=== PATIENT | female | born 1985 | race Caucasian/White ===

== ENCOUNTER → 2017-02-17 | Outpatient (CLI) | payer OTHER ==
--- NOTE | 2017-02-17 16:12 | CPEKG ---
Heart Rate: 96 RR Interval: 625 P-R Interval: 144 QRSD Interval: 80 QT Interval: 360 QTC Interval: 455 P Olney: 43 QRS Olney: 44 T Wave Olney: 64 EKG Severity - NORMAL ECG - EKG Impression: SINUS RHYTHM Electronically Signed By: Juan Francisco Judd 18-Feb-2017 09:47:16
== END ==
LOC: FCP 15:55
PROVIDERS: ATTEND Obstetrics & Gynecology
DX: O24.012 Pre-existing type 1 diabetes mellitus, in pregnancy, second trimester (principal)

== ENCOUNTER → 2017-03-22 | Outpatient (CLI) | payer OTHER | LOC: FIMAGING 12:01 | PROVIDERS: ATTEND Obstetrics & Gynecology | DX: O24.012 Pre-existing type 1 diabetes mellitus, in pregnancy, second trimester (principal); O99.212 Obesity complicating pregnancy, second trimester; O34.219 Maternal care for unspecified type scar from previous cesarean delivery; O99.282 Endocrine, nutritional and metabolic diseases complicating pregnancy, second trimester; E66.9 Obesity, unspecified; E03.9 Hypothyroidism, unspecified; Z68.37 Body mass index [BMI] 37.0-37.9, adult; Z3A.20 20 weeks gestation of pregnancy ==

== ENCOUNTER → 2017-04-13 | Outpatient (CLI) | payer OTHER | LOC: FIMAGING 12:19 | PROVIDERS: ATTEND Obstetrics & Gynecology | DX: O24.012 Pre-existing type 1 diabetes mellitus, in pregnancy, second trimester (principal); O99.212 Obesity complicating pregnancy, second trimester; O99.282 Endocrine, nutritional and metabolic diseases complicating pregnancy, second trimester; E66.9 Obesity, unspecified; E03.9 Hypothyroidism, unspecified; Z3A.23 23 weeks gestation of pregnancy ==

== ENCOUNTER → 2017-04-19 | Outpatient (CLI) | payer OTHER | LOC: FIMAGING 08:43 | PROVIDERS: ATTEND Obstetrics & Gynecology | DX: O99.212 Obesity complicating pregnancy, second trimester (principal); O24.012 Pre-existing type 1 diabetes mellitus, in pregnancy, second trimester; O34.219 Maternal care for unspecified type scar from previous cesarean delivery; Z3A.24 24 weeks gestation of pregnancy; Z68.37 Body mass index [BMI] 37.0-37.9, adult ==

== ENCOUNTER 2017-07-26 17:30 | Observation (INO) | payer OTHER ==
[2017-07-26 20:05] LABS: ADD DIFF? NO; ADD MORPH? NO; ADD SCAN? NO; ATYPICAL LYMPHOCYTE FLAG 20 (0-99); FRAGMENT RBC FLAG 0 (0-99); HEMATOCRIT 37.4 % (38.0-47.0); HEMOGLOBIN 13.4 g/dL (12.6-16.3); LEFT SHIFT FLG 0 (0-99); LIPEMIA HEMOLYSIS FLAG 90 (0-99); MEAN CELL HEMOGLOBIN 34.4 pg (27.9-34.1); MEAN CELL HEMOGLOBIN CONCENTR. 35.8 g/dL (32.4-36.7); MEAN CELL VOLUME 96.1 fL (81.5-99.8); MEAN PLATELET VOLUME 10.7 fL (8.7-11.7); PLATELET CLUMPS FLAG 0 (0-99); PLATELET COUNT 194 10^3/uL (150-400); RED BLOOD CELL COUNT 3.89 10^6/uL (4.18-5.33); RED CELL DISTRIBUTION WIDTH 12.9 % (11.5-15.2)
[2017-07-26 20:31] LABS: ALANINE AMINOTRANSFERASE 24 IU/L (9-52); ASPARTATE AMINOTRANSFERASE 17 IU/L (14-46); BILIRUBIN,TOTAL 0.5 mg/dL (0.1-1.4); BILIRUBIN-CONJUGATED 0.3 mg/dL (0.0-0.5); BILIRUBIN-UNCONJUGATED 0.2 mg/dL (0.0-1.1); CREATININE 0.5 mg/dL (0.6-1.0); GLOMERULAR FILTRATION RATE > 60; LACTATE DEHYDROGENASE 401 IU/L (313-618); URIC ACID 4.8 mg/dL (2.5-6.8)
[2017-07-27] MEDS ORDERED: morphINE PF 5 MG/10 ML INJ ONE (12:17)
== END 2017-07-26 22:48 | disposition home or self-care (01) ==
LOC: FOBOP 17:30 → FLD 18:08
PROVIDERS: ADMIT Obstetrics & Gynecology; ATTEND Obstetrics & Gynecology
DX: O76 Abnormality in fetal heart rate and rhythm complicating labor and delivery (principal); Z3A.38 38 weeks gestation of pregnancy
CPT/HCPCS: 76818; G0378; J2274

== ENCOUNTER 2017-07-27 10:36 | Inpatient (IN) | payer OTHER ==
--- NOTE | 2017-07-16 16:39 | GHP ---
[f rep st] PREOP HISTORY AND PHYSICAL Amended report HISTORY UPON PRESENTATION: The patient is a 32-year-old, G2, P1, at 39+ weeks gestation, with an estimated due date of 08/08/2017, established by her last menstrual period. The patient is scheduled for repeat section with a history of prior section scheduled due to a large for gestational age infant with insulin-dependent diabetes. The patient declines a tubal ligation. The patient has had thorough care with [facility] as well as criminal investigator customs, Dr. Flynn and maternal specialist. The patient presents complaining of good movement, no regular contractions and no bleeding. Bag of water intact. The patient is instructed for the night before surgery to adjust her insulin pump settings in conjunction with advice from Dr. Flynn due to her n.p.o. status after midnight. The patient has recently developed increased abdominal wall itching and pruritic erythematous abdominal wall rash. This was evaluated with liver function tests on 07/14, which were all normal. Bile acids were drawn, but are pending at the time of dictation. The patient also has a history of PUPPP rash as well as preeclampsia that presented and the patient was readmitted for IV magnesium sulfate. Full PIH labs were performed on 07/14, and are normal. The patient was initiated on Actigall to see if that could help with the symptomatic rash. Risks and benefits for repeat section have been discussed with the patient and the consent form signed. CARE: The patient again has been followed with [facility] since 8 weeks' gestation. The patient does have type 1 diabetes and has been followed with Dr. Flynn with frequent adjustments of her insulin pump settings throughout the . The patient was also found to be hypothyroid at the beginning of and was initiated on levothyroxine and this was also adjusted in the . Her last several lab checks have been normal for the thyroid replacement. She was not on medication and TSH was 16 at the end of the 1st trimester. For complete diabetic screening, the patient also had a echo and this was normal. Baseline proteinuria was also in the normal range. The patient has been having monthly growth ultrasounds which have shown LGA with most recent estimated weight at the 98th percentile. She has had twice weekly NSTs and weekly LENI checks since 32 weeks' gestation. LABS: Maternal blood type O-, and the father of the child is also a negative blood type, so no RhoGAM has been administered. Negative antibody screen. RPR nonreactive. Rubella immune. Hepatitis B surface antigen negative. HIV negative. Cystic fibrosis, SMA, Fragile X, all negative. Baseline proteinuria was 231 mg per 24 hours. Hemoglobin initially was 7.7 and improved to 6.6 in the . Urinalysis and culture were negative. Pap smear normal. Gonorrhea and chlamydia negative. Verified testing was negative and MSAFP was negative. Most recent TSH was 2.1 with normal free T4 and recent hematocrit 37%. Platelet count 201,000. Creatinine was 0.5, uric acid 4.7, and liver functions tests totally normal. GBS culture was done on . Bile acids are pending. PAST MEDICAL HISTORY: Insulin-dependent diabetes diagnosed in 2003. The patient with hypothyroidism in the past, but discontinued after her 1st . PAST SURGICAL HISTORY: section in 2014 scheduled, tonsils out at age 11. PAST OBSTETRIC HISTORY: In 06/2015, a viable female born by section with a weight of 10 pounds 8 ounces at 38 weeks' gestation. The patient had PUPPP and was readmitted 1 week after delivery, also with elevated blood pressures and was declared to be preeclamptic. She received 24 hours of magnesium sulfate and was on blood pressure medicines for approximately a week after the delivery. ALLERGIES: The patient has no known drug allergies. CURRENT MEDICATIONS: Insulin pump directed by Dr. Flynn, vitamins, iron daily, vitamin D daily, levothyroxine 112 mcg daily. SOCIAL HISTORY: The patient is , lives with her , Jax, and their daughter, Preeti. Patient is a nonsmoker. No alcohol or drug use. REVIEW OF SYSTEMS: 10-point review of systems was performed with the pertinent positives and negatives in the HPI. PHYSICAL EXAMINATION: GENERAL: At the time of preop, the patient is an obese white female in no distress other than irritation and pruritus at the abdominal wall. VITAL SIGNS: The patient is clinically afebrile with blood pressure 124/ 88 with negative protein and glucose in the urine. The patient's weight is 244 pounds. LUNGS: Clear to auscultation bilaterally. CARDIOVASCULAR: Regular rate and rhythm. BREAST EXAM: Not performed. ABDOMEN: There is a very erythematous, pruritic abdominal wall rash. heart tones were monitored and there was a reactive NST with a baseline in the 120s with accelerations and no decelerations noted. Contractions are occurring that are not noticeable to the patient every 4 to 5 minutes. The patient had an ultrasound performed on , that revealed an estimated weight of 10 pounds 8 ounces with polyhydramnios with an LENI of 35 cm in the vertex presentation with a posterior grade 2 placenta. EXTREMITIES: Nontender, only mild edema. PELVIC EXAM: Not performed. ASSESSMENT: Intrauterine at 39+ weeks on 08/02/2017, who presents for repeat section. Previous section due for LGA with insulin-dependent diabetes. Maternal obesity, hypothyroidism. Recent pruritic abdominal rash with normal LFTs with bile acids pending. Concern for appearance of preeclampsia with PUPPP and we will watch the patient closely in the . PLAN: Consent form signed for a repeat . Tubal ligation is declined. The patient will plan with Dr. Flynn how to manage her insulin pump for the night prior to surgery. Patient is instructed to take her morning thyroid dose with a sip of water. /[id number]/MODL Carlos acc#, 07/27/17, geronimo DIAZ
[2017-07-27] MEDS ORDERED: CITRIC ACID/SODIUM CITRATE 30 ML UDCUP PO ONE (11:11)
[2017-07-27] MEDS ORDERED: ceFAZolin 2 GM/DEXTROSE 100 ML IV ONE (11:11)
[2017-07-27] MEDS ORDERED: LR 500 ML IV ONE (11:11)
--- NOTE | 2017-07-27 11:21 | PREANESOB ---
Obstetric Pre-Anesthesia Info - General Info Proposed Procedure: Repeat Section NPO Start Time: 00:00 : 2 Para: 1 - Info Status: Full Term Monitors: External FHR Pattern: Reassuring - Labor Status Section History: Repeat Indications for Current Section: Elective/Repeat (Spinal anesthesia, RBA discussed) Anesthesia Allergies/Adverse Reactions: Allergy/AdvReac Type Severity Reaction Status Date / Time No Known Allergies Allergy Unverified 07/26/17 18:35 Visit Medications: Generic Name Dose Route Start Last Admin Trade Name Freq PRN Reason Stop Dose Admin Cefazolin Sodium/Dextrose 100 mls @ 200 mls/hr 07/27/17 11:11 Ancef 2 Gm (Premix) IV 07/27/17 11:40 ONCALL ONE Protocol Lactated Ringer's 1,000 mls @ 125 mls/hr 07/27/17 11:30 Lr IV 07/28/17 11:29 CONT JAMIE Discontinued Medications Generic Name Dose Route Start Last Admin Trade Name Freq PRN Reason Stop Dose Admin Citric Acid/Sodium Citrate 30 ml 07/27/17 11:11 Bicitra PO 07/27/17 11:12 ONCALL ONE Lactated Ringer's 500 mls @ 0 mls/hr 07/27/17 11:11 Lr IV 07/27/17 11:12 ONCE ONE As Directed - Vital Signs Height/Weight (Nursing): Height 162.56 cm Weight 111.584 kg
[2017-07-27] MEDS ORDERED: OLIVE OIL 118 ML BTL ONE (11:26)
[2017-07-27] MEDS ORDERED: MISOPROSTOL 200 MCG TAB ONE (11:27)
[2017-07-27] MEDS ORDERED: OXYTOCIN 10 UNIT/ML VIAL ONE (11:27)
[2017-07-27] MEDS ORDERED: LR 1,000 ML IV SCH (11:30)
[2017-07-27 11:33] LABS: ABSOLUTE IMMATURE GRANULOCYTES 0.09 10^3/uL (0.00-0.10); ABSOLUTE NRBC COUNT 0.02 10^3/uL (0-0.01); ADD DIFF? NO; ADD MORPH? NO; ADD SCAN? NO; ATYPICAL LYMPHOCYTE FLAG 10 (0-99); FRAGMENT RBC FLAG 0 (0-99); HEMATOCRIT 37.6 % (38.0-47.0); HEMOGLOBIN 13.6 g/dL (12.6-16.3); LEFT SHIFT FLG 0 (0-99); LIPEMIA HEMOLYSIS FLAG 90 (0-99); MEAN CELL HEMOGLOBIN 34.8 pg (27.9-34.1); MEAN CELL HEMOGLOBIN CONCENTR. 36.2 g/dL (32.4-36.7); MEAN CELL VOLUME 96.2 fL (81.5-99.8); MEAN PLATELET VOLUME 10.7 fL (8.7-11.7); NRBC-AUTO% 0.2 % (0.0-0.2); PLATELET CLUMPS FLAG 0 (0-99); PLATELET COUNT 191 10^3/uL (150-400); RED BLOOD CELL COUNT 3.91 10^6/uL (4.18-5.33)
[2017-07-27] MEDS ORDERED: HYDROmorphONE/DILAUDID 2 MG/ML INJ ONE (12:11)
[2017-07-27] MEDS ORDERED: fentaNYL 100 MCG/2 ML INJ ONE (12:19)
[2017-07-27] MEDS ORDERED: ONDANSETRON 4 MG/2 ML VIAL ONE (12:35)
[2017-07-27] MEDS ORDERED: PHENYLEPHRINE HCL 100 MCG/ML SYR ONE (12:35)
[2017-07-27] MEDS ORDERED: OXYTOCIN 100 UNITS/10 ML VIAL ONE (12:51)
[2017-07-27 13:16] LABS: BASE EXCESS CORD -7.3 mEq/L (-13.6--3.2); CORD BLOOD PCO2 71.1 mmHg (37-60); PH ARTERIAL CORD BLOOD 7.15 (7.10-7.37)
[2017-07-27 13:20] LABS: PH VENOUS CORD BLOOD 7.21 (7.20-7.42)
[2017-07-27] MEDS ORDERED: fentaNYL 100 MCG/2 ML INJ IVP PRN (13:31)
[2017-07-27] MEDS ORDERED: ONDANSETRON 4 MG/2 ML VIAL IVP PRN (13:31)
[2017-07-27] MEDS ORDERED: PHENYLEPHRINE HCL 100 MCG/ML SYR IVP PRN (13:31)
[2017-07-27] MEDS ORDERED: OXYCODONE/APAP 5/325 TAB PO PRN (13:31)
[2017-07-27] MEDS ORDERED: HYDROCODONE/APAP 5/325 TAB PO PRN (13:31)
[2017-07-27] MEDS ORDERED: NALOXONE HCL 0.4 MG/ML INJ IVP PRN (13:31)
--- NOTE | 2017-07-27 13:50 | POSTANESTH ---
Post Anesthetic Evaluation Cardiovascular Status: Normal, Stable, Similar to Pre-Op Cond Respiratory Status: Normal, Stable, Similar to Pre-op Cond. Level of Consciousness/Mental Status: Can Participate in Eval Pain Control: Adequate, Prn Tx Ordered Nausea/Vomiting Control: Adequate, Prn Tx Ordered Complications Possibly Related to Anesthesia: None Noted
--- NOTE | 2017-07-27 13:58 | OBDEL ---
Info Type: Repeat Presentation at Delivery: Vertex L&D Analgesia/Anesthesia Type: Spinal GBS+: No Intrapartum Medications: Discontinued Medications Generic Name Dose Route Start Last Admin Trade Name Micah PRN Reason Stop Dose Admin Citric Acid/Sodium Citrate 30 ml 07/27/17 11:11 07/27/17 11:40 Bicitra PO 07/27/17 11:12 30 ml ONCALL ONE Administration Cefazolin Sodium/Dextrose 100 mls @ 200 mls/hr 07/27/17 11:11 07/27/17 11:57 Ancef 2 Gm (Premix) IV 07/27/17 11:40 100 mls ONCALL ONE Administration Protocol - Care Provider Roll Forger/FISH FROG OR OYSTER FARMER: Kaela Deleon - Hospital Course Intrapartum: 07/27/17 13:54 GHTN diagnosed last night. Indications for Delivery: Gestational Hypertension (Prior c/s) Vaginal Delivery - Labor and Delivery Rupture of Membranes Date: 07/27/17 Rupture of Membranes Time: 12:57 Placenta Delivery Date: 07/27/17 Placenta Delivery Time: 13:00 Cord Gases: Cord Gases Cord Blood PCO2 71.1 mmHg (37-60) H 07/27/17 13:05 Cord Base Excess -7.3 mEq/L (-13.6--3.2) 07/27/17 13:05 Cord ABG pH 7.15 (7.10-7.37) 07/27/17 13:05 Cord VBG pH 7.21 (7.20-7.42) 07/27/17 13:05 Operative Report - Delivery Pre-op Diagnoses: IUP @ 38 1/7 wks with IDDM, hypothyroidism and prior c/s who developed GHTN late in . Post-op Diagnoses: IUP @ 38 1/7 wks with IDDM, hypothyroidism and prior c/s who developed GHTN late in . History of Prior Section: Yes Number of Prior Sections: 1 Indications for Prior Section: Other (Specify) (Macrosomia) Indications for Current Section: Other (Specify) (GHTN) Procedure: Low Transverse Surgeon: Theresa Gann Renal Dialysis Rn: Guerda Thomas Anesthesiologist: Clifton Yung Complications: None Findings: A viable female at 1259 weighing 5060 gms in cephalic presentation. Vacuum applied to assist with delivery of large , no pop-offs. 8 and 8 Apgars noted. Cord gases and cord blood obtained and sent. Placenta delivered spontaneously intact with 3-vc. Grossly normal appearing uterus, tubes and ovaries b/l. Specimen(s)/Path: Other (Specify) (none) IV Fluid (ml): 2,000 EBL: 800 cc UO: 50 cc clear urine Cord Gases: Cord Gases Cord Blood PCO2 71.1 mmHg (37-60) H 07/27/17 13:05 Cord Base Excess -7.3 mEq/L (-13.6--3.2) 07/27/17 13:05 Cord ABG pH 7.15 (7.10-7.37) 07/27/17 13:05 Cord VBG pH 7.21 (7.20-7.42) 07/27/17 13:05 [place] Data KAYCEE: 08/08/17 Gestational Age: 38 week(s) and 2 day(s) Berg Delivery Date: 07/27/17 Delivery Time: 12:59 Sex of : Female ("Julieth") Score (1 Min): 8 Score (5 Min): 8 ICD10 Worksheet Patient Problems: Problems Problem Status Onset Gestational hypertension Acute Hypothyroid Acute IDDM (insulin dependent diabetes mellitus) Acute Previous section complicating Acute Status post repeat low transverse section Acute - ICD10 Problem Qualifiers (1) Gestational hypertension (2) Previous section complicating (3) IDDM (insulin dependent diabetes mellitus) (4) Hypothyroid (5) Status post repeat low transverse section
[2017-07-27] MEDS ORDERED: POLYETHYLENE GLYCOL 3350 17 GM PKT PO PRN (14:04)
[2017-07-27] MEDS ORDERED: DOCUSATE SODIUM 100 MG CAP PO PRN (14:04)
[2017-07-27] MEDS ORDERED: SIMETHICONE 80 MG TAB CHEW PO PRN (14:04)
[2017-07-27] MEDS ORDERED: PROMETHAZINE HCL 25 MG/ML INJ IVP PRN (14:04)
[2017-07-27] MEDS ORDERED: BISACODYL 10 MG SUPP PR PRN (14:04)
[2017-07-27] MEDS ORDERED: MAGNESIUM HYDROXIDE 30 ML UDCUP PO PRN (14:04)
[2017-07-27] MEDS ORDERED: LACTULOSE 20 GM/30 ML UDCUP PO PRN (14:04)
--- NOTE | 2017-07-27 14:17 | GHP ---
[f rep st] PREOP HISTORY AND PHYSICAL DATE OF ADMISSION: 07/27/2017 ADDENDUM: Addendum to the preop history and physical dictated by Dr. Guerda Thomas on 07/16/2017, ITS report #[id number] Today, Giulia is a 32-year-old 2, para 1-0-0-1 who is 38 and 0/7 weeks ' gestation, who presented to Labor and Delivery for evaluation of a nonreactive nonstress test and was found to have elevated blood pressures. Her blood pressures have ranged in the 140s to 150s over 80s to 90s during our evaluation. Currently, patient denies headaches or scotoma, right upper quadrant pain, and has noticed slightly increased edema, but no other symptoms. She does have irregular contractions. Has felt good movement. Upon evaluation, heart tones were in the 130s, reactive moderate variability. She had a biophysical physical profile which was 8/8, and had a maximal vertical pocket of 5.5. Baby was in transverse presentation with head on maternal right. During our evaluation, I did PIH labs which were normal. White blood cell count was 10.04, hemoglobin 13.4, hematocrit 37.4, platelets 194, BUN 8, creatinine 0.5, uric acid 4.8. AST 17, ALT 24, LDH 401. Her random urine creatinine ratio was 32.2 and 15, giving a ratio of 0.465. Therefore, patient with elevated blood pressures and proteinuria develops the diagnosis of preeclampsia and at 38 weeks, the decision was made to proceed with delivery. The patient has a history of lower transverse section with G1 secondary to suspected macrosomia. The baby was 10 pounds 8 ounces. This baby is also suspected to be greater than 10 pounds. The patient declines a trial of labor and elects to have a repeat lower transverse section, which will be performed on 07/27/2017, at 12 noon. The patient was consented for the procedure. She understands the risks and benefits; the risks including bleeding ; infection; damage to internal organs, uterus, tubes, ovaries, bowel, bladder, nerves, blood vessels, ureters; injury; hemorrhage; and hysterectomy. Patient understood these risks and benefits, and agreed to proceed. /[id number]/MODL MTDD
--- NOTE | 2017-07-27 14:23 | GHP ---
[f rep st] HISTORY AND PHYSICAL - ADDENDUM DATE OF ADMISSION: 07/27/2017 ADDENDUM: To History and Physical report dictated by Guerda Thomas MD, on 07/16/17, ITS report #[id number] ADMITTING DIAGNOSES: 1. Intrauterine at 38 1/7 weeks with a prior section. 2. Gestational hypertension with elevated protein to creatinine ratio 3. Insulin-dependent diabetes on insulin pump. 4. Hypothyroidism. HISTORY OF PRESENT ILLNESS: The patient is a 32-year-old 2, para 1, at 38 1/7 weeks with an estimated due date 08/08/2017, established by her last menstrual. The patient was scheduled for repeat with a history of prior section due to large for gestational age infant with insulin- dependent diabetes on 08/03/17. Patient presented to my office yesterday for a nonstress test, which was found to be nonreactive. Patient was sent over to labor and delivery for prolonged monitoring and a BPP. Biophysical profile and NST on the labor deck was 8/8. There was noted to be some elevated blood pressures, labile anywhere from 140s to 150s over 80s to 90s, the highest being 156/97. The patient is asymptomatic and denies any headaches, visual changes, or right upper quadrant pain. There is some lower extremity swelling. PIH labs were drawn. Platelets are 191. AST 17. ALT 24. LDH 401. Urine P:C ratio was elevated at 0.45. My partner, Dr. Esther Irwin, had a long discussion with patient and her last night. She discussed that with the newly diagnosed gestational hypertension and elevated P:C ratio, it was recommended to deliver now rather than at 39 weeks. The patient agreed to the plan. Surgical consents were obtained at bedside last night. Discussed risks, benefits, alternatives with the patient including but not limited to, bleeding, infection, and damage to surrounding organs. Patient understands all risks at this time, and wants to proceed with surgery. She was discharged from hospital and returned this morning for RCS. Patient presented this morning to Labor and Delivery stating good movement. Denies any contractions, or any leakage of fluid. Denies any headaches , visual changes, or right upper quadrant pain. She does endorse some lower extremity swelling. Beside u/s was done that showed transverse lie with head on maternal right. Will proceed with repeat . Reviewed surgical consents and no questions. Antibiotics on-call to the OR. SCDs for DVT prophylaxis. /[id number]/MODL EMILY
[2017-07-27] MEDS ORDERED: KETOROLAC 30 MG/1 ML SDV ONE (14:56)
[2017-07-27] MEDS ORDERED: KETOROLAC 30 MG/1 ML SDV IVP SCH ×2 (16:30→18:00)
--- NOTE | 2017-07-27 21:16 | GOP ---
[f rep st] OPERATIVE REPORT DATE OF OPERATION: 07/27/2017 SURGEON: Theresa Gann DO UNDERTAKER HELPER: Guerda Thomas MD, Kaela Vergara [facility]. ANESTHESIA: Spinal anesthesia. ANESTHESIOLOGIST: Clifton Yung MD. PREOPERATIVE DIAGNOSIS: Intrauterine at 38-1/7 weeks' gestation with insulin-dependent diabetes, hypothyroidism, prior , who developed gestational hypertension late in the and has an elevated protein to creatinine ratio. POSTOPERATIVE DIAGNOSIS: Intrauterine at 38-1/7 weeks' gestation with insulin-dependent diabetes, hypothyroidism, prior , who developed gestational hypertension late in the and has an elevated protein to creatinine ratio. PROCEDURE PERFORMED: Repeat low transverse section. FINDINGS: A viable female in cephalic presentation born at 1259 weighing 5060 g. Vacuum was applied to assist with delivery. There were no pop offs noted. 8 and 8 Apgars noted. Cord gases: ABG was 7.15, VBG 7.21, base excess negative 7.3. Cord blood was obtained and sent. Placenta delivered spontaneously intact with 3-vessel cord. Grossly normal-appearing uterus, tubes, and ovaries bilaterally. ESTIMATED BLOOD LOSS: 800 mL. INDICATIONS: Patient is a 32-year-old 2, para 1-0-0-1, at 38-1/7 weeks with an estimated due date 07/29/2017 by a last menstrual. She was scheduled for repeat with a history of prior secondary to LGA infant, insulin-dependent diabetes, on 08/03/2017. She presented to my office yesterday for a nonstress test, which was found to be nonreactive. Patient was then sent over to labor and delivery for prolonged monitoring and a biophysical profile. Biophysical profile was 8/8. There was noted to be some elevated blood pressures. They were labile, anywhere from 140s to 150 systolic over 80s to 90s diastolic, highest being 156/87. The patient was asymptomatic. She denied any headaches, visual changes, or right upper quadrant pain. There is some lower extremity swelling noted. PIH labs were drawn and there was elevated protein to creatinine ratio at 0.45. It was discussed with the patient that with newly diagnosed gestational hypertension and elevated P:C ratio, it was recommended to deliver now rather than at 39 weeks. Patient agreed to the plan. Surgical consents were obtained at bedside. Discussed risks, benefits, and alternatives with the patient including, but not limited to, bleeding, infection, and damage to surrounding organs. Patient understands all risks at this time and wants to proceed with surgery. She returned to the hospital this morning for a repeat and has no questions and is ready to proceed with repeat . DESCRIPTION OF PROCEDURE: Patient was taken to the operating room where she was given spinal anesthesia without difficulty. She was prepped and draped in the usual sterile manner, and placed in supine position with leftward tilt. There was a very large pannus that was taped to allow visualization of the Pfannenstiel skin incision. A Chu catheter was placed in her bladder. After adequate anesthesia was assured, a Pfannenstiel skin incision was made at the previous scar and incision was carried down to the layer of fascia with the Bovie. The fascia was then incised in the midline. The fascial incision was extended laterally with Ruiz scissors. Superior aspect of fascial incision was grasped with Brooks clamps, elevated, and rectus muscle dissected off sharply. Inferior aspect of fascial incision was then grasped with Brooks clamps, elevated, and the rectus muscles were dissected off sharply. Rectus muscles were then in the midline. Peritoneum was then visualized, entered bluntly, and extended superiorly and inferiorly with good visualization of the bladder. Bladder blade was then inserted. Vesicouterine peritoneum was then grasped with the pickups, entered with Metzenbaum scissors. Incision was extended laterally and a bladder flap was created digitally. Bladder blade was then reinserted. A low-transverse uterine incision was then made with the knife. Incision was extended anteriorly and posteriorly digitally. There was clear amniotic fluid noted upon entry of the amniotic sac. Baby was noted to be in cephalic presentation. There was difficulty delivering the large head, so a vacuum-kiwi was applied to baby with no pop offs and with fundal pressure, the head finally delivered as well as the anterior and posterior shoulders. Mouth and nose were bulb suctioned. Cord was clamped x2 and cut and the infant was handed off to awaiting nurse practitioner. Cord gases as well as cord blood was obtained and sent. Placenta was then removed spontaneously intact with 3-vessel cord. Uterus was then exteriorized, cleared of all clots and debris. Uterine incision was then repaired with 0 Vicryl in a running, locked fashion. Hemostasis was noted. A 2nd imbricating layer of suture was performed with 0 Vicryl. Hemostasis was noted. Uterus was returned to the abdomen. Gutters were cleared of all clots and debris. Reinspection of the uterine incision revealed slight oozing, so at this point, surgical Shruti was placed and hemostasis was achieved. The rectus muscles were then reapproximated with 2-0 Vicryl in inverted mattress fashion. Fascia was then closed with 0 Vicryl in a running fashion. Hemostasis was noted. The skin was closed with 4-0 Vicryl on a Jef needle. The patient tolerated the procedure well. No complications noted. Sponge, lap, needle, and instrument counts were correct x2. Patient was then taken to recovery room in stable condition. FLUIDS: 2 L of LR. URINE OUTPUT: 50 mL of clear urine at the end of the procedure. /[id number]/MODL MTDD
[2017-07-27] MEDS: SENNOSIDES/DOCUSATE SODIUM TAB PO SCH (22:24)
[2017-07-27] MEDS: KETOROLAC 30 MG/1 ML SDV IVP SCH (22:24)
[2017-07-28] MEDS: KETOROLAC 30 MG/1 ML SDV IVP SCH ×2 (05:00→10:00)
[2017-07-28] MEDS: LEVOTHYROXINE 112 MCG TAB PO SCH ×2 (05:01→06:40)
[2017-07-28] MEDS: SENNOSIDES/DOCUSATE SODIUM TAB PO SCH (10:40)
[2017-07-28] MEDS ORDERED: MEASLES,MUMPS&RUBELLA VACC/PF 0.5 ML VIAL SC ONE (11:54)
--- NOTE | 2017-07-28 13:41 | OBPP ---
Progress Note Assessment/Plan: Assessment: POD 1 s/p RCS, unscheduled due to gest HTN IDDM - on pump with good BS hypothy on meds mild anemia Plan: Routine PP care, watch B/P , iron daily 07/28/17 13:37 Subjective/ Course: 07/28/17 13:38 Pt doing well. Bld is light. just had lilly out and hasn't urinated yet. has been up and amb a bit. not dizzy. Baby has been attempting latching and pt pumping. BS has been great since she delivered. Aware that B/P has been slightly elev and reassured it's not in range of concern and often will stay slightly elevated for couple weeks. Objective: 07/28/17 05:10 Patient ABO/Rh O NEGATIVE 07/27/17 11:20 Temp Pulse Resp BP Pulse Ox 36.2 C 92 18 137/87 H 97 07/28/17 04:15 07/28/17 04:15 07/28/17 04:15 07/28/17 04:15 07/28/17 04:15 Uterine Position/Fundal Height: Umbilicus -1 Uterine Tone: Firm Physical Exam - Physical Exam Abdomen: non-tender, soft, other (bandage with old marking of drainage, little extension) Extremities: non-tender, pedal edema (mild) Skin: normal color, warm/dry Neuro/Psych: alert, normal mood/affect
[2017-07-28] MEDS: IBUPROFEN 600 MG TAB PO PRN (17:44)
[2017-07-28] MEDS: HYDROCODONE/APAP 5/325 TAB PO PRN (22:04)
[2017-07-29] MEDS: HYDROCODONE/APAP 5/325 TAB PO PRN (03:48)
[2017-07-29] MEDS ORDERED: SUCROSE 1 EA UDL ONE (04:34)
[2017-07-29] MEDS: IBUPROFEN 600 MG TAB PO PRN ×3 (07:55→20:45)
[2017-07-29] MEDS: LEVOTHYROXINE 112 MCG TAB PO SCH (07:55)
[2017-07-29] MEDS: SENNOSIDES/DOCUSATE SODIUM TAB PO SCH ×2 (07:57→09:02)
[2017-07-29] MEDS: IRON POLYSAC/IRON HEME 28 MG TAB PO SCH (07:57)
--- NOTE | 2017-07-29 17:58 | OBPP ---
Progress Note Assessment/Plan: Assessment: [id number] Ps/p RCS, unscheduled due to gest HTN POD#2 IDDM - on pump with good BS hypothyroid on meds mild anemia /pumping Plan: routine post op care cont iron QD ambulate/hydrate breastfeed/pump plan d/c home in 24-48hours 07/29/17 17:55 07/29/17 17:58 Subjective/ Course: 07/28/17 13:38 Pt doing well. Bld is light. just had lilly out and hasn't urinated yet. has been up and amb a bit. not dizzy. Baby has been attempting latching and pt pumping. BS has been great since she delivered. Aware that B/P has been slightly elev and reassured it's not in range of concern and often will stay slightly elevated for couple weeks. Objective: 07/28/17 05:10 Patient ABO/Rh O NEGATIVE 07/27/17 11:20 Temp Pulse Resp BP Pulse Ox 36.1 C 77 18 137/83 H 97 07/29/17 08:00 07/29/17 08:00 07/29/17 08:00 07/29/17 08:00 07/29/17 08:00 Uterine Position/Fundal Height: At Umbilicus, Midline Uterine Tone: Firm Physical Exam - Physical Exam EENT: PERRL/EOMI Neck: supple Respiratory: lungs clear, normal breath sounds Cardiac/Chest: regular rate, rhythm Abdomen: non-tender (obese), soft, incision (well approximated, small amt of drainage noted from left side of incision. no steristrips present) Extremities: swelling (1+ pedal) Skin: normal color, warm/dry Neuro/Psych: no motor/sensory deficits, alert, normal mood/affect, oriented x 3
[2017-07-30] MEDS: HYDROCODONE/APAP 5/325 TAB PO PRN ×3 (00:15→11:02)
[2017-07-30] MEDS: SENNOSIDES/DOCUSATE SODIUM TAB PO SCH ×2 (00:15→08:51)
[2017-07-30] MEDS: IBUPROFEN 600 MG TAB PO PRN (08:52)
[2017-07-30] MEDS: IRON POLYSAC/IRON HEME 28 MG TAB PO SCH (08:52)
[2017-07-30 08:55] VITALS: BP 131/92; PULSE 73; RESP 14; TEMP 96; O2SAT 97
--- NOTE | 2017-07-30 10:38 | OBPP ---
Progress Note Assessment/Plan: Assessment: 32 y/o POD #3 s/p Rpt LTCS secondary to Gestational HTN and IDDM. Plan: D/c home today with Rx Lee and Ibuprofen and Bifera. Follow-up @ [facility] 2, 4 and 6 weeks. Routine POC. 07/30/17 10:34 Subjective/ Course: 07/28/17 13:38 Pt doing well. Bld is light. just had lilly out and hasn't urinated yet. has been up and amb a bit. not dizzy. Baby has been attempting latching and pt pumping. BS has been great since she delivered. Aware that B/P has been slightly elev and reassured it's not in range of concern and often will stay slightly elevated for couple weeks. 07/30/17 10:33 Pt is doing well this am. She has good pain control with Lee and Ibuprofen. She is ambulating and voiding and had a BM without difficulty. Breast feeding is going well and baby and mom are ready to d/c home. Objective: 07/28/17 05:10 Patient ABO/Rh O NEGATIVE 07/27/17 11:20 Temp Pulse Resp BP Pulse Ox 35.5 C L 73 14 131/92 H 97 07/30/17 08:00 07/30/17 08:00 07/30/17 08:00 07/30/17 08:00 07/30/17 08:00 Uterine Position/Fundal Height: Umbilicus -2 Uterine Tone: Firm Physical Exam - Physical Exam Neck: non-tender, full range of motion, supple Respiratory: chest non-tender, lungs clear, normal breath sounds Cardiac/Chest: regular rate, rhythm Abdomen: normal bowel sounds, incision (c/d/i, sl serosangous d/c) Extremities: swelling (2+), Fredy's sign (neg)
--- NOTE | 2017-07-30 10:38 | OBGCSDC ---
General Delivery Information - General Info : 2 Para: 2 Abortions: 0 Type: Repeat L&D Analgesia/Anesthesia Type: Spinal Admission Date: 07/27/17 Labs: Patient ABO/Rh O NEGATIVE 07/27/17 11:20 Hct 34.1 % (38.0-47.0) L 07/28/17 05:10 - Hospital Course Intrapartum: 07/27/17 13:54 GHTN diagnosed last night. : 07/28/17 13:38 Pt doing well. Bld is light. just had lilly out and hasn't urinated yet. has been up and amb a bit. not dizzy. Baby has been attempting latching and pt pumping. BS has been great since she delivered. Aware that B/P has been slightly elev and reassured it's not in range of concern and often will stay slightly elevated for couple weeks. 07/30/17 10:33 Pt is doing well this am. She has good pain control with Rosamond and Ibuprofen. She is ambulating and voiding and had a BM without difficulty. Breast feeding is going well and baby and mom are ready to d/c home. - Delivery Providers Surgeon: Theresa Gann Online Activist: Guerda Thomas Anesthesiologist: Clifton Yung - Delivery Number of Prior Sections: 1 Indications for Current Section: Other (Specify) (GHTN) Surgical Procedures: Low Transverse Intra-op Complications: None EBL: 800 cc UO: 50 cc clear urine Data KAYCEE: 08/08/17 Gestational Age: 38 week(s) and 5 day(s) Berg Delivery Date: 07/27/17 Delivery Time: 12:59 Sex of Infant: Female Score (1 Min): 8 Score (5 Min): 9 Discharge Information - Discharge Information Prescriptions: Hydrocodone/APAP 5/325 [Rosamond 5/325 (*)] 1 - 2 tab PO Q4HRS PRN #30 tab PRN Reason: Pain, Moderate Ibuprofen [Motrin (*)] 600 mg PO Q6HRS PRN #30 tab PRN Reason: Inflammation Iron Polysacch/Iron Heme Polyp [Bifera] 28 mg PO DAILY #30 tab Instruction/Follow Up: Two Weeks, Four Weeks, Six Weeks
[2017-07-30] MEDS: LEVOTHYROXINE 112 MCG TAB PO SCH (10:55)
== END 2017-07-30 13:45 | disposition home or self-care (01) | DRG 766 ==
LOC: FLD 10:36 → FOB 13:35
PROVIDERS: ADMIT Obstetrics & Gynecology; ATTEND Obstetrics & Gynecology
PROC: 10D00Z1 Extraction of Products of Conception, Low, Open Approach (ICD-10-PCS; principal; 2017-07-27)
DX: O13.4 Gestational [pregnancy-induced] hypertension without significant proteinuria, complicating childbirth (principal); O24.02 Pre-existing type 1 diabetes mellitus, in childbirth; E10.9 Type 1 diabetes mellitus without complications; Z79.4 Long term (current) use of insulin; Z96.41 Presence of insulin pump (external) (internal); O99.284 Endocrine, nutritional and metabolic diseases complicating childbirth; E03.9 Hypothyroidism, unspecified; O34.219 Maternal care for unspecified type scar from previous cesarean delivery; O36.63X0 Maternal care for excessive fetal growth, third trimester, not applicable or unspecified; Z3A.38 38 weeks gestation of pregnancy; Z37.0 Single live birth
CPT/HCPCS: J0690; J1170; J1885; J2370; J2405; J2590; J3010